=== PATIENT | female | born 1945 | race Hispanic/Latino ===

== ENCOUNTER 2018-01-03 11:37 | Emergency (ER) | payer OTHER ==
[~2018-01-03 11:37] MED LIST: LISI-613 PO; METF-444 PO; ROSU20TA30 PO
[2018-01-03] MEDS ORDERED: HYDROCODONE/ACETAMINOPHEN 5/325 MG TAB ONE (12:51)
== END 2018-01-03 13:29 | disposition home or self-care (01) ==
LOC: EDH 11:37
DX: S52.501A Unspecified fracture of the lower end of right radius, initial encounter for closed fracture (principal); E78.5 Hyperlipidemia, unspecified; I10 Essential (primary) hypertension; Z90.710 Acquired absence of both cervix and uterus; W18.09XA Striking against other object with subsequent fall, initial encounter; Y93.89 Activity, other specified; Y92.098 Other place in other non-institutional residence as the place of occurrence of the external cause; Y99.8 Other external cause status
CPT/HCPCS: 29125; 73090; 73110

== ENCOUNTER → 2023-07-18 | Outpatient (CLI) | payer OTHER ==
[~2023-07-18] MED LIST changes: -LISI-613 PO; +LISI20TA24 PO; -ROSU20TA30 PO; +ROSU20TA73 PO
== END | disposition home or self-care (01) ==
LOC: RAH 09:34
PROVIDERS: ATTEND Internal Medicine Cardiovascular Disease
DX: Z13.6 Encounter for screening for cardiovascular disorders (principal)
CPT/HCPCS: 75571

== ENCOUNTER → 2023-07-18 | Outpatient (CLI) | payer MEDICARE, OTHER | END | disposition home or self-care (01) | LOC: SHCH 10:23 | PROVIDERS: ATTEND Internal Medicine Cardiovascular Disease | DX: I08.3 Combined rheumatic disorders of mitral, aortic and tricuspid valves (principal); R01.1 Cardiac murmur, unspecified; R94.31 Abnormal electrocardiogram [ECG] [EKG] | CPT/HCPCS: 93306 ==

== ENCOUNTER → 2023-09-13 | Outpatient (CLI) | payer MEDICARE, OTHER ==
[2023-09-13] MEDS: REGADENOSON 0.4 MG/5 ML PF SYG IVP ONE (12:32)
== END | disposition home or self-care (01) ==
LOC: SHCH 08:47
PROVIDERS: ATTEND Internal Medicine Cardiovascular Disease
DX: I25.10 Atherosclerotic heart disease of native coronary artery without angina pectoris (principal)
CPT/HCPCS: 78452; 93017; J2785; A9500 ×2; 96374